=== PATIENT | male | born 1960 | race Caucasian/White ===

== ENCOUNTER 2019-04-24 07:37 | Emergency (ER) | payer BC, OTHER ==
[2019-04-24] MEDS ORDERED: WATER FOR INJ,STERILE 20 ML ONE (08:06)
--- NOTE | 2019-04-24 08:17 | ER ---
Nurse's Notes [facility] Name: Cm Dunn Age: 58 yrs Sex: Male : 1960 Arrival Date: 04/24/2019 Time: 07:37 Bed 16 Private MD: Diagnosis: Gastrostomy status;Gastrostomy complication, unspecified Presentation: 04/24 07:38 Presenting complaint: EMS states: PULLED PEG TUBE AT HALF-WAY. Transition of care: bp patient was received from another setting of care ([facility]. Onset of symptoms is unknown. Risk Assessment: Do you want to hurt yourself or someone else? Patient reports no desire to harm self or others. Initial Sepsis Screen: Does the patient meet any 2 criteria? No. Patient's initial sepsis screen is negative. Does the patient have a suspected source of infection? No. Patient's initial sepsis screen is negative. Care prior to arrival: None. 07:38 Method Of Arrival: EMS: [facility] bp 07:38 Acuity: MATTHEW 4 bp Triage Assessment: 07:38 General: Appears in no apparent distress. AT BASELINE. Behavior is NONVERBAL, AOx0 AT bp BASELINE. Pain: Unable to use pain scale. Does not appear to understand pain scale. EENT: No deficits noted. Neuro: AT BASELINE. Cardiovascular: No deficits noted. Respiratory: No deficits noted. GI: PEG tube PULLED BY PT. : No signs and/or symptoms were reported regarding the genitourinary system. Derm: No signs and/or symptoms reported regarding the dermatologic system. Musculoskeletal: No deficits noted. Historical: - Allergies: 07:59 No Known Allergies; jl7 - Home Meds: 07:59 amlodipine 10 mg oral tab 1 tab once daily [Active]; Ativan 1 mg Oral tab [Active]; jl7 carvedilol 25 mg oral tab 1 tab 2 times per day [Active]; Morphine Oral [Active]; - PMHx: 07:59 CVA; Hypertension; COPD; pnuemonitis; jl7 - Immunization history:: Adult Immunizations up to date. - Social history:: Smoking status: Patient/guardian denies using tobacco. - Ebola Screening: : No symptoms or risks identified at this time. - Family history:: not pertinent. Screenin:42 Abuse screen: Denies threats or abuse. Denies injuries from another. Nutritional bp screening: No deficits noted. Tuberculosis screening: No symptoms or risk factors identified. Fall Risk None identified. Assessment: 08:30 General: Appears in no apparent distress. uncomfortable, Behavior is calm, cooperative. jl7 Pain: Denies pain. Neuro: Level of Consciousness is awake, alert, obeys commands. Cardiovascular: Patient's skin is warm and dry. Respiratory: Airway is patent Respiratory effort is even, unlabored, Respiratory pattern is regular, symmetrical. GI: PEG tube not in place. Derm: Skin is pink, warm \\T\\ dry. 09:01 Reassessment: Discharge report given to Nurse Emilia at [facility] and she states "Let me jl7 see who I can get to go get him." Not ETA given at this time. 09:34 Reassessment: Emilia reports [facility] will be here to transport pt soon. jl7 Vital Signs: 07:54 BP 171 / 115; Pulse 98; Resp 20 S; Pulse Ox 96% on R/A; jl7 09:09 BP 160 / 110; Pulse 98; Resp 20; Temp 97.9(TE); Pulse Ox 95% on R/A; mh5 ED Course: 07:37 Patient arrived in ED. bp 07:37 Gilberto Santamaria MD is Attending Physician. ruby 07:39 Triage completed. bp 07:42 Arm band placed on. bp 07:42 Patient has correct armband on for positive identification. Bed in low position. Call bp light in reach. Side rails up X2. 07:54 Samantha Flores, RN is Primary Nurse. jl7 08:09 G tube replacement by Dr. Santamaria, 20 Fr Kangaroo Gastrostomy feeding tube placed into jl7 existing stoma. 08:16 Luis Rubin MD is Referral Physician. ruby 08:30 Patient did not have IV access during this emergency room visit. jl7 08:57 Abdomen 1 View (KUB) XRAY: WITH 30CC GASTRO-GRAPHIN In Process Unspecified. EDMS Administered Medications: No medications were administered Outcome: 08:16 Discharge ordered by . ruby 10:21 Discharged to correction. aj1 10:21 Condition: good 10:21 Discharge instructions given to correction, Instructed on discharge instructions, follow up and referral plans. Demonstrated understanding of instructions. 10:23 Patient left the ED. aj1 Signatures: Dispatcher [employer] EDAbena Lemon RN RN aj1 Gilberto Santamaria MD MD cha Martinez, Maria 5 Samantha Flores RN RN jl7 Brandon Ibarra RN RN bp Corrections: (The following items were deleted from the chart) 09:11 09:09 BP 160 / 110; Pulse 98bpm; Resp 20bpm; Pulse Ox 95% RA; 5 5
--- NOTE | 2019-04-24 08:17 | EDPHYS ---
Physician Documentation [facility] Name: Cm Dunn Age: 58 yrs Sex: Male : 1960 Arrival Date: 04/24/2019 Time: 07:37 Bed 16 Private MD: ED Physician Gilberto Santamaria HPI: 04/24 08:13 This 58 yrs old Male presents to ER via EMS with complaints of Displaced ruby G-tube. 08:13 The patient presents with abdominal pain peg out needs replacement. Onset: The ruby symptoms/episode began/occurred just prior to arrival, this morning. The symptoms do not radiate. Associated signs and symptoms: none. Severity of pain: At its worst the pain was mild in the emergency department the pain is unchanged. The patient has not experienced similar symptoms in the past. Historical: - Allergies: 07:59 No Known Allergies; jl7 - Home Meds: 07:59 amlodipine 10 mg oral tab 1 tab once daily [Active]; Ativan 1 mg Oral tab [Active]; jl7 carvedilol 25 mg oral tab 1 tab 2 times per day [Active]; Morphine Oral [Active]; - PMHx: 07:59 CVA; Hypertension; COPD; pnuemonitis; jl7 - Immunization history:: Adult Immunizations up to date. - Social history:: Smoking status: Patient/guardian denies using tobacco. - Ebola Screening: : No symptoms or risks identified at this time. - Family history:: not pertinent. ROS: 08:13 Constitutional: Negative for fever, chills, and weight loss, Eyes: Negative for injury, ruby pain, redness, and discharge, ENT: Negative for injury, pain, and discharge, Neck: Negative for injury, pain, and swelling, Cardiovascular: Negative for chest pain, palpitations, and edema, Respiratory: Negative for shortness of breath, cough, wheezing, and pleuritic chest pain, Back: Negative for injury and pain, : Negative for injury, bleeding, discharge, and swelling, MS/Extremity: Negative for injury and deformity, Skin: Negative for injury, rash, and discoloration, Neuro: Negative for headache, weakness, numbness, tingling, and seizure, Psych: Negative for depression, anxiety, suicide ideation, homicidal ideation, and hallucinations, Allergy/Immunology: Negative for hives, rash, and allergies, Endocrine: Negative for neck swelling, polydipsia, polyuria, polyphagia, and marked weight changes, Hematologic/Lymphatic: Negative for swollen nodes, abnormal bleeding, and unusual bruising. 08:13 Abdomen/GI: Positive for abdominal pain, of the left upper quadrant. Exam: 08:13 Constitutional: This is a well developed, well nourished patient who is awake, alert, ruby and in no acute distress. Head/Face: Normocephalic, atraumatic. Eyes: Pupils equal round and reactive to light, extra-ocular motions intact. Lids and lashes normal. Conjunctiva and sclera are non-icteric and not injected. Cornea within normal limits. Periorbital areas with no swelling, redness, or edema. ENT: Nares patent. No nasal discharge, no septal abnormalities noted. Tympanic membranes are normal and external auditory canals are clear. Oropharynx with no redness, swelling, or masses, exudates, or evidence of obstruction, uvula midline. Mucous membranes moist. Neck: Trachea midline, no thyromegaly or masses palpated, and no cervical lymphadenopathy. Supple, full range of motion without nuchal rigidity, or vertebral point tenderness. No Meningismus. Chest/axilla: Normal chest wall appearance and motion. Nontender with no deformity. No lesions are appreciated. Cardiovascular: Regular rate and rhythm with a normal S1 and S2. No gallops, murmurs, or rubs. Normal PMI, no JVD. No pulse deficits. Respiratory: Lungs have equal breath sounds bilaterally, clear to auscultation and percussion. No rales, rhonchi or wheezes noted. No increased work of breathing, no retractions or nasal flaring. Back: No spinal tenderness. No costovertebral tenderness. Full range of motion. Male : Normal genitalia with no discharge or lesions. Skin: Warm, dry with normal turgor. Normal color with no rashes, no lesions, and no evidence of cellulitis. MS/ Extremity: Pulses equal, no cyanosis. Neurovascular intact. Full, normal range of motion. Neuro: Awake and alert, GCS 15, oriented to person, place, time, and situation. Cranial nerves II-XII grossly intact. Motor strength 5/5 in all extremities. Sensory grossly intact. Cerebellar exam normal. Normal gait. Psych: Awake, alert, with orientation to person, place and time. Behavior, mood, and affect are within normal limits. 08:13 Abdomen/GI: Inspection: abdomen appears normal, Bowel sounds: normal, Palpation: abdomen is soft and non-tender, Liver: no appreciated palpable abnormalities, Hernia: not appreciated. Vital Signs: 07:54 BP 171 / 115; Pulse 98; Resp 20 S; Pulse Ox 96% on R/A; jl7 09:09 BP 160 / 110; Pulse 98; Resp 20; Temp 97.9(TE); Pulse Ox 95% on R/A; mh5 Procedures: 08:54 G-tube placement: a 20 Nepali catheter was placed, by the ED physician, Gilberto Santamaria cha, MD. MDM: 07:37 Patient medically screened. [facility] 08:15 Data reviewed: vital signs, nurses notes, radiologic studies, plain films. [facility] 04/24 08:07 Order name: Abdomen 1 View (KUB) XRAY: WITH 30CC GASTRO-GRAPHIN bp Administered Medications: No medications were administered Disposition: 04/24/19 08:16 Discharged to Home. Impression: Gastrostomy status, Gastrostomy complication, unspecified. - Condition is Stable. - Discharge Instructions: Gastrostomy Tube Replacement, Gastrostomy Tube Home Guide, Adult, PEG Tube Home Guide, [id number], Gastrostomy Tube Replacement, Care After. - Medication Reconciliation Form, Thank You Letter, Antibiotic Education, Prescription Opioid Use form. - Follow up: Private Physician; When: 2 - 3 days; Reason: Recheck today's complaints, Continuance of care, Re-evaluation by your physician. Follow up: Luis Rubin MD; When: 2 - 3 days; Reason: Recheck today's complaints, Continuance of care, Re-evaluation by your physician. - Problem is new. - Symptoms have improved. Signatures: Dispatcher [employer] EDMS Abena Gonzalez RN RN aj1 Gilberto Santamaria MD MD cha Leal, Jahala, RN RN jl7 Brandon Ibarra RN RN bp Corrections: (The following items were deleted from the chart) 10:23 08:16 04/24/2019 08:16 Discharged to Home. Impression: Gastrostomy status; Gastrostomy aj1 complication, unspecified. Condition is Stable. Forms are Medication Reconciliation Form, Thank You Letter, Antibiotic Education, Prescription Opioid Use. Follow up: Private Physician; When: 2 - 3 days; Reason: Recheck today's complaints, Continuance of care, Re-evaluation by your physician. Follow up: Luis Rubin; When: 2 - 3 days; Reason: Recheck today's complaints, Continuance of care, Re-evaluation by your physician. Problem is new. Symptoms have improved. ruby
--- NOTE | 2019-04-24 10:09 | RAD REPORT ---
EXAM DESCRIPTION: RAD - Abdomen 1 View (KUB) - 04/24/2019 8:57 am CLINICAL HISTORY: PEG PLACEMENT COMPARISON: No comparisons FINDINGS: Supine KUB images were obtained prior to and following repositioning of the PEG tube and r etrograde injection of contrast. A follow-up image shows PEG tube in the body antrum junction of the stomach. All injected contrast re esthela within the lumen of the bowel.
[2019-04-24 10:40] VITALS: BP 160/110; TEMP 97.9; O2SAT 95
== END 2019-04-24 10:23 | disposition home or self-care (01) ==
LOC: ER 07:37
PROC: 0D20XUZ Change Feeding Device in Upper Intestinal Tract, External Approach (ICD-10-PCS; principal; 2019-04-24)
DX: K94.29 Other complications of gastrostomy (principal); I10 Essential (primary) hypertension; J44.9 Chronic obstructive pulmonary disease, unspecified; Z86.73 Personal history of transient ischemic attack (TIA), and cerebral infarction without residual deficits
CPT/HCPCS: 74018; 99283